=== PATIENT | female | born 1975 | race Caucasian/White ===

== ENCOUNTER 2018-02-21 12:22 | Emergency (ER) | payer OTHER ==
[~2018-02-21] VITALS: Ht 162.6 cm; Wt 59.0 kg
[~2018-02-21 12:22] MED LIST: CLONAZEPAM0.5 MG PO; CLONAZEPAM1 MG PO; DESYREL100 MG PO; Dilaudid PO; ENDOCET 5-3251 EACH PO; ESCITALOPRAM OX20 MG PO; FEOSOL325 MG PO; FLEXERIL10 MG PO; GABAPENTIN100 MG PO; KEFLEX500 MG PO; KlonoPIN PO; METHADONE HCL40 MG PO; MOTRIN600 MG PO; MOTRIN800 MG PO; Methadone PO; Motrin PO; NAPROSYN500 MG PO; PEN-VEE K,VEET500 MG PO; PERCOCET 10/1 TABLET PO; PREFERA-OB P1 TABLET PO; Procardia XL,Adalat PO; QUETIAPINE FUMA25 MG PO; TYLENOL EXTRA500 MG PO; ULTRAM50 MG PO; VALIUM2 MG PO
[2018-02-21] MEDS ORDERED: METHADONE5 MG PO (14:10)
[2018-02-21 14:36] LABS: HEMATOCRIT 41.9 % (36.0-46.0); HEMOGLOBIN 15.1 G/DL (11.9-15.5); MCH 32.3 PG (29.0-34.0); MCV 89.7 FL (83-99); PLATELET COUNT 215 K/uL (156-360); RBC DIS.WIDTH-CV 11.7 % (11.8-14.6); RBC DIS.WIDTH-SD 38.4 % (39-53); RED BLOOD COUNT 4.67 M/uL (3.80-5.20); WHITE BLOOD COUNT 12.2 K/uL (4.1-10.2)
[2018-02-21 14:47] LABS: CHLORIDE 105 mEq/L (99-109); POTASSIUM 4.5 mEq/L (3.7-5.4); SODIUM 139 mEq/L (136-147)
[2018-02-21 14:48] LABS: GLUCOSE 111 mg/dL (70-99)
[2018-02-21 14:52] LABS: CREATININE 0.7 mg/dL (0.6-1.3); GFR ESTIMATE (CALCULATED) > 59 mL/min/
[2018-02-21 14:53] LABS: UREA NITROGEN (BUN) 7 mg/dL (9-23)
[2018-02-21] MEDS ORDERED: DOXYCYCLINE HY100 MG PO (15:30)
[2018-02-21] MEDS ORDERED: AUGMENTIN875 MG PO (15:30)
[2018-02-21] MEDS ORDERED: MOTRIN800 MG PO (15:48)
[2018-02-21 16:12] VITALS: BP 122/70
== END 2018-02-21 16:13 | disposition home or self-care (01) ==
LOC: EME 12:22
PROVIDERS: Nurse Practitioner Family
DX: F11.90 Opioid use, unspecified, uncomplicated (principal); L03.113 Cellulitis of right upper limb; R65.10 Systemic inflammatory response syndrome (SIRS) of non-infectious origin without acute organ dysfunction; F17.200 Nicotine dependence, unspecified, uncomplicated
CPT/HCPCS: 73080; 80048; 83605; 85027; 87040; J1885; J3010; J7050; J7120